=== PATIENT | female | born 1985 | race Caucasian/White ===

== ENCOUNTER 2019-01-10 17:44 | Emergency (ER) | payer MEDICAID ==
[2019-01-10] MEDS ORDERED: PROPARACAINE HCL OPTH 15ML BTL OPTH ONE (17:48)
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
[2019-01-10] MEDS ORDERED: GENTAMICIN OPTH OINT 3.5 GM TUBE OPTH ONE (18:36)
[2019-01-10] MEDS ORDERED: Diph,Pert(Acell),Tet Vac 0.5 ML SYR IM ONE (18:46)
== END 2019-01-10 18:58 | disposition home or self-care (01) ==
LOC: ER 17:44
DX: S05.02XA Injury of conjunctiva and corneal abrasion without foreign body, left eye, initial encounter (principal); W21.89XA Striking against or struck by other sports equipment, initial encounter; Y92.009 Unspecified place in unspecified non-institutional (private) residence as the place of occurrence of the external cause
CPT/HCPCS: 90715; 96372; 99283